=== PATIENT | female | born 1995 | race Two or more races ===

== ENCOUNTER 2020-02-23 20:04 | Emergency (ER) | END 2020-02-23 22:20 | disposition left against medical advice (07) | LOC: ER 20:04 | DX: Z53.21 Procedure and treatment not carried out due to patient leaving prior to being seen by health care provider (principal) ==

== ENCOUNTER 2020-03-28 05:15 | Day surgery (SDC) | payer OTHER ==
[2020-03-25 11:46] LABS: HEMATOCRIT 39.9 % (36.0-47.0); HEMOGLOBIN 13.5 g/dL (12.0-15.5); MEAN CORPUSCULAR HEMOGLOBIN 26.1 pg (27.0-33.4); MEAN CORPUSCULAR HGB CONC 33.7 g/dL (32.0-36.0); MEAN CORPUSCULAR VOLUME 77 fl (80-97); PLATELET COUNT 204 10^3/uL (150-450); RED BLOOD COUNT 5.16 10^6/uL (3.72-5.28); RED CELL DISTRIBUTION WIDTH 12.9 % (11.5-14.0); WHITE BLOOD COUNT 7.9 10^3/uL (4.0-10.5)
[2020-03-25 12:08] LABS: ANION GAP 7 (5-19); BLOOD UREA NITROGEN 12 mg/dL (7-20); CALCIUM 9.6 mg/dL (8.4-10.2); CARBON DIOXIDE 24 mmol/L (22-30); CHLORIDE 106 mmol/L (98-107); GLUCOSE 85 mg/dL (75-110); POTASSIUM 4.2 mmol/L (3.6-5.0)
[2020-03-25 15:25] LABS: APPEARANCE,URINE SLIGHTLY-CLOUDY; BILIRUBIN,URINE NEGATIVE (NEGATIVE); COLOR,URINE YELLOW; GLUCOSE, URINE NEGATIVE (NEGATIVE); KETONES,URINE NEGATIVE (NEGATIVE); LEUKOCYTE ESTERASE,URINE NEGATIVE (NEGATIVE); NITRITE,URINE NEGATIVE (NEGATIVE); PROTEIN,URINE NEGATIVE (NEGATIVE); URINE SPECIFIC GRAVITY 1.021; UROBILINOGEN,URINE NEGATIVE mg/dL (<2.0)
[~2020-03-28 05:15] MED LIST: LACTATED RINGERS 1000 ML IV PRN; LIDOCAINE 0.5% INJ-PF (5 MG/ML) 50 ML SDV SUBCUT PRN; SCOPOLAMINE HYDROBROMIDE 1.5 MG PATCH.TD72 ONE; SCOPOLAMINE HYDROBROMIDE 1.5 MG PATCH.TD72 TD PRN
[2020-03-28] MEDS ORDERED: CEFAZOLIN 1 GM/D5W RTU 1 GM/50 ML RTUPB IV ONE (05:27)
[2020-03-28] MEDS ORDERED: CEFAZOLIN 1 GM/D5W RTU 1 GM/50 ML RTUPB IV PRN (05:39)
[2020-03-28] MEDS ORDERED: MIDAZOLAM 2 MG/2 ML INJ ONE (06:55)
[2020-03-28] MEDS ORDERED: DEXAMETHASONE SOD PHOSPHATE INJ 4 MG/1 ML VIAL ONE (06:55)
[2020-03-28] MEDS ORDERED: FENTANYL CITRATE INJ/PF 100 MCG/2 ML AMPUL ONE (06:55)
[2020-03-28] MEDS ORDERED: ONDANSETRON HCL INJ/PF 4 MG/2 ML SDV ONE (06:55)
[2020-03-28] MEDS ORDERED: PROPOFOL INJ 200 MG/20 ML VIAL IV ONE (06:56)
[2020-03-28] MEDS ORDERED: MORPHINE SULFATE 10 MG/ML INJ ONE (06:56)
[2020-03-28] MEDS ORDERED: BUPIVACAINE HCL 0.25 % INJ/PF (2.5 MG/1 ML) 30 ML VIAL ONE (07:13)
[2020-03-28] MEDS ORDERED: SUGAMMADEX SODIUM 200 MG/2 ML SDV IV ONE (08:10)
[2020-03-28] MEDS ORDERED: DIPHENHYDRAMINE HCL 50 MG/ML VIAL IV PRN (08:14)
[2020-03-28] MEDS ORDERED: MEPERIDINE HCL/PF INJ 25 MG/1 ML DISP.SYRIN IV PRN (08:14)
[2020-03-28] MEDS ORDERED: MORPHINE SULFATE 10 MG/ML INJ IV PRN (08:14)
[2020-03-28] MEDS ORDERED: OXYCODONE-ACETAMINOPHEN 5-325 MG TABLET PO PRN ×2 (08:14)
[2020-03-28] MEDS ORDERED: FENTANYL CITRATE INJ/PF 100 MCG/2 ML AMPUL IV PRN ×3 (08:14)
[2020-03-28] MEDS ORDERED: PROMETHAZINE HCL INJ 25 MG/1 ML VIAL IV PRN ×2 (08:14)
--- NOTE | 2020-03-28 08:36 | Operative Report ---
Operative Report DATE OF SURGERY: 03/28/20 PREOPERATIVE DIAGNOSIS: Pelvic pain POSTOPERATIVE DIAGNOSIS: Cervical stenosis / Powder brush endometriosis OPERATION: Attempted D & C / Laparoscopy SURGEON: ENEDELIA RODRIGUEZ ANESTHESIA: GA TISSUE REMOVED OR ALTERED: None COMPLICATIONS: None ESTIMATED BLOOD LOSS: 25 cc INTRAOPERATIVE FINDINGS: Cervical stenosis / powder brush endometriosis PROCEDURE: Patient was brought into the operating room and placed on the table in a supine position. He was then inducted under general anesthesia. Patient was repositioned in a dorsolithotomy position. The bladder was drained of about 75 cc of clear yellow urine. Pelvic under anesthesia was then performed. Weighted vaginal speculum was inserted. Cervix grasped with a single-tooth tenaculum and Allis forceps on its anterior lip. We made several attempts to dilate the cervix using a small Hegar dilators however due to cervical stenosis we were unsuccessful. Attention was turned to the abdominal wall. Introduced subumbilically and carried through the various layers until the abdominal cavity was entered. We were connected CO2. Opening pressures were 5 cm of water. After 2 L of CO2 were infused the patient's pressure intra-abdominal he was 15 cm of water. Varies needle was removed and a small incision was made infraumbilically. Through this incision a trocar and sleeve were inserted. The trocar was removed and through the sleeve a laparoscope was inserted. Second incision was made suprapubically. Incision a trocar and sleeve were inserted. The trocar was removed and through the sleeve a probe was inserted. The contents of the abdomen and pelvis were then video recorded. Again it. To be any adhesions at this point in time. There were a few small areas of superficial endometriosis. That was about 20 cc of serosanguineous fluid in the cul-de-sac. This fluid was removed through a catheter. This terminated the intra-abdominal portion of our procedure. The suprapubic sleeve was removed and there was no evidence of active bleeding. 2 was allowed to escape. The subumb ilical sleeve was then removed. And had 4 cc of quarter percent Marcaine injected in the subumbilical incision. Patient had 3 cc of quarter percent Marcaine injected in the suprapubic incision. Fascia in the subumbilical incision and suprapubic incision was closed with interrupted using 2-0 Vicryl. Skin edges in the subumbilical incision were closed with a subcuticular using 4- 0 Prolene. Pubic incision skin edges were brought together and closed using a interrupted 4-0 Prolene. She was turned down to the patient's pelvis again. His speculum was inserted and the cervix was visualized once again. There was no evidence of active bleeding. Terminated the procedure. Anesthesia was discontinued and the patient was placed back in the supine position. She was transferred to the recovery room in satisfactory condition. Blood loss was 25 cc. Patient tolerated procedure well.
[2020-03-28] MEDS ORDERED: OXYCODONE-ACETAMINOPHEN 5-325 MG TABLET ONE (08:56)
[2020-03-28 13:18] VITALS: BP 105/74
[2020-03-28] MEDS ORDERED: ROCURONIUM BROMIDE INJ 50 MG/5 ML VIAL IV ONE (14:55)
== END 2020-03-28 11:00 | disposition home or self-care (01) ==
LOC: OROUT 05:15
PROVIDERS: ATTEND Obstetrics & Gynecology
DX: N88.2 Stricture and stenosis of cervix uteri (principal); N80.8 Other endometriosis; R10.2 Pelvic and perineal pain; N94.6 Dysmenorrhea, unspecified; Z03.818 Encounter for observation for suspected exposure to other biological agents ruled out
CPT/HCPCS: 49320; 58120; 36415; 87205; 87070; 85027; 87635; 81025; 87075; 80048; 81001; 88162; 00840; J2250; J0690; J3490 ×2; J1100; J3010; J2270; J2405; J2704; C9803; 840

== ENCOUNTER 2020-03-28 16:41 | Emergency (ER) | payer OTHER ==
[2020-03-28] MEDS ORDERED: ONDANSETRON HCL INJ/PF 4 MG/2 ML SDV IV ONE (16:55)
--- NOTE | 2020-03-28 16:57 | ER Document Report ---
ED Medical Screen (RME) - General Chief Complaint: Urinary Retention Stated Complaint: POST SURGICAL COMPLICATIONS/UNABLE TO PEE Time Seen by Provider: 03/28/20 16:49 Primary Care Provider: MAN GRANADOS PA-C [Primary Care Provider] - Follow up as needed Notes: Patient is a 24-year-old female who presents the emergency department with a chief complaint of urinary retention. Patient had an exploratory laparotomy and done today by Dr. Bella. Patient states that she had that done for endometriosis. States that she has the urge to urinate, but has not since prior to the surgery. Patient states that she has tenderness to her lower abdomen. States that she attempted drink a lot of fluids, but still has not voided. Patient reports vomiting 4 times. Exam: Surgical incision noted to navel. I have greeted and performed a rapid initial assessment of this patient. A comprehensive ED assessment and evaluation of the patient, analysis of test results and completion of medical decision making process will be conducted by an additional ED providers. - Related Data Allergies/Adverse Reactions: No Known Allergies Allergy (Verified 03/28/20 05:49) Home Medications: lexapro. control Past Medical History - Social History Frequency of alcohol use: None Drug Abuse: None - Past Medical History Cardiac Medical History: Denies: Hx Coronary Artery Disease, Hx Heart Attack, Hx Hypertension Pulmonary Medical History: Denies: Hx Asthma, Hx Bronchitis, Hx COPD, Hx Pneumonia Neurological Medical History: Denies: Hx Cerebrovascular Accident, Hx Seizures Musculoskeltal Medical History: Denies Hx Arthritis - Immunizations Hx Diphtheria, Pertussis, Tetanus Vaccination: Yes Physical Exam - Vital signs Vitals: Temp Pulse Resp BP Pulse Ox 98.9 F 65 14 111/66 98 03/28/20 16:52 03/28/20 16:52 03/28/20 16:52 03/28/20 16:52 03/28/20 16:52 Course - Vital Signs Vital signs: Temp Pulse Resp BP Pulse Ox 98.9 F 65 14 111/66 98 03/28/20 16:52 03/28/20 16:52 03/28/20 16:52 03/28/20 16:52 03/28/20 16:52 Doctor's Discharge - Discharge Referrals: MAN GRANADOS PA-C [Primary Care Provider] - Follow up as needed
[2020-03-28 17:48] LABS: ABSOLUTE LYMPHOCYTES (AUTO) 0.9 10^3/uL (0.5-4.7); ABSOLUTE MONOCYTES (AUTO) 0.2 10^3/uL (0.1-1.4); ABSOLUTE NEUT (AUTO) 8.2 10^3/uL (1.7-8.2); BASOPHILS % (AUTO) 0.3 % (0-2); HEMATOCRIT 40.4 % (36.0-47.0); HEMOGLOBIN 13.3 g/dL (12.0-15.5); LYMPHOCYTES % (AUTO) 9.8 % (13-45); MEAN CORPUSCULAR HEMOGLOBIN 25.9 pg (27.0-33.4); MEAN CORPUSCULAR HGB CONC 32.9 g/dL (32.0-36.0); MEAN CORPUSCULAR VOLUME 79 fl (80-97); PLATELET COUNT 219 10^3/uL (150-450); RED BLOOD COUNT 5.14 10^6/uL (3.72-5.28); RED CELL DISTRIBUTION WIDTH 12.8 % (11.5-14.0); SEGMENTED NEUTROPHILS % (AUTO) 87.9 % (42-78); TOTAL CELLS COUNTED % (AUTO) 100 %; WHITE BLOOD COUNT 9.3 10^3/uL (4.0-10.5)
[2020-03-28 18:05] LABS: ALBUMIN 4.3 g/dL (3.5-5.0); ALKALINE PHOSPHATASE 50 U/L (38-126); ANION GAP 8 (5-19); ASPARTATE AMINO TRANSFERASE 24 U/L (14-36); BILIRUBIN,TOTAL 0.6 mg/dL (0.2-1.3); BLOOD UREA NITROGEN 7 mg/dL (7-20); CALCIUM 9.8 mg/dL (8.4-10.2); CARBON DIOXIDE 22 mmol/L (22-30); CHLORIDE 100 mmol/L (98-107); GLUCOSE 116 mg/dL (75-110); POTASSIUM 4.4 mmol/L (3.6-5.0); TOTAL PROTEIN 7.9 g/dL (6.3-8.2)
--- NOTE | 2020-03-28 18:12 | ER Document Report ---
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 Has had some nausea vomiting at home tonight. Complains of soreness over the abdomen but no acute abdominal pain other than discomfort from not being able to urinate. No fever. ROS: See HPI - all other systems were reviewed and are otherwise negative Constitutional: no fever Eyes: no drainage, no blurred vision ENT: no runny nose, no sore throat Cardiovascular: no chest pain Resp: no SOB, no cough GI: + vomiting, no diarrhea, + abdominal pain : no dysuria Integumentary: no rash Allergy: no hives Musculoskeletal: no extremity pain or swelling Neurological: no numbness/tingling, no weakness MEDICATIONS: I agree with the patient medications as charted by the RN. ALLERGIES: I agree with the allergies as charted by the RN. PAST MEDICAL HISTORY/PAST SURGICAL HISTORY: Reviewed and agree as charted by RN. SOCIAL HISTORY: Reviewed and agree as charted by RN. FAMILY HISTORY: No significant familial comorbid conditions directly related to patient complaint EXAM: Reviewed vital signs as charted by RN. CONSTITUTIONAL: Alert and oriented and responds appropriately to questions. Well-appearing; well-nourished HEAD: Normocephalic; atraumatic EYES: PERRL; Conjunctivae clear, sclerae non-icteric ENT: normal nose; no rhinorrhea; moist mucous membranes; pharynx without lesions noted, no uvula edema or deviation, no tonsillar hypertrophy, phonation normal NECK: Supple without meningismus; non-tender; no cervical lymphadenopathy, no masses CARD: RRR; no murmurs, no clicks, no rubs, no gallops; symmetric distal pulses RESP: Normal chest excursion without splinting or tachypnea; breath sounds clear and equal bilaterally; no wheezes, no rhonchi, no rales, pulse oximetry 100% on room air not hypoxic ABD/GI: Normal bowel sounds; non-distended; soft, there is mild tenderness over the suprapubic region of the abdomen. Laparoscopic sites appear intact., no rebound, no guarding; no palpable organomegaly or masses. BACK: The back appears normal and is non-tender to palpation, there is no CVA tenderness EXT: Normal ROM in all joints; non-tender to palpation; no cyanosis, no effusions, no edema SKIN: Normal color for age and race; warm; dry; good turgor; no acute lesions noted NEURO: Moves all extremities equally; Motor and sensory function intact PSYCH: The patient's mood and manner are appropriate. Grooming and personal hygiene are appropriate. MDM: 24-year-old female with urinary retention postsurgically. As I arrived to the room to evaluate the patient she was able to urinate a large amount. Bladder scan by nursing post void does not show significant residual. She received Zofran here for her nausea and states it is improved. Will make sure she has a prescription for nausea and will discharge home to follow-up with her surgeon with return instructions - Related Data Allergies/Adverse Reactions: No Known Allergies Allergy (Verified 03/28/20 05:49) Home Medications: lexapro. control Past Medical History - Social History Smoking Status: Never Smoker Frequency of alcohol use: None Drug Abuse: None Family History: Reviewed & Not Pertinent - Past Medical History Cardiac Medical History: Denies: Hx Coronary Artery Disease, Hx Heart Attack, Hx Hypertension Pulmonary Medical History: Denies: Hx Asthma, Hx Bronchitis, Hx COPD, Hx Pneumonia Neurological Medical History: Denies: Hx Cerebrovascular Accident, Hx Seizures Musculoskeletal Medical History: Denies Hx Arthritis - Immunizations Hx Diphtheria, Pertussis, Tetanus Vaccination: Yes Physical Exam - Vital signs Vitals: Temp Pulse Resp BP Pulse Ox 98.9 F 65 14 111/66 98 03/28/20 16:52 03/28/20 16:52 03/28/20 16:52 03/28/20 16:52 03/28/20 16:52 Course - Vital Signs Vital signs: Temp Pulse Resp BP Pulse Ox 98.9 F 65 14 111/66 98 03/28/20 16:52 03/28/20 16:52 03/28/20 16:52 03/28/20 16:52 03/28/20 16:52 - Laboratory Result Diagrams: 03/28/20 17:31 03/28/20 17:31 Laboratory results interpreted by me: 03/28/20 17:31 MCV 79 L MCH 25.9 L Lymph % (Auto) 9.8 L [place] % (Auto) 2.0 L Seg Neutrophils % 87.9 H Discharge - Discharge Clinical Impression: Urine retention Condition: Stable Disposition: HOME, SELF-CARE Instructions: Urinary Retention ([facility]) Additional Instructions: Continue to push fluids at home. Take Zofran for any nausea vomiting issues. Return if you are unable to void in another 8 hours or have significant abdominal discomfort. Follow-up with your RIG OPERATOR for further evaluation and treatment call for appointment or speak with the on-call providers for further direction Prescriptions: Ondansetron [Zofran Odt 4 mg Tablet] 1 - 2 tab PO Q4H PRN #15 tab.rapdis PRN Reason: For Nausea/Vomiting Referrals: MAN GRANADOS PA-C [Primary Care Provider] - Follow up as needed
[2020-03-28 18:36] VITALS: BP 104/57
== END 2020-03-28 18:38 | disposition home or self-care (01) ==
LOC: ER 16:41
DX: R33.9 Retention of urine, unspecified (principal); R11.10 Vomiting, unspecified; R10.9 Unspecified abdominal pain; Z79.3 Long term (current) use of hormonal contraceptives
CPT/HCPCS: 99283; 96374; 36415; 85025; 80053; J2405

== ENCOUNTER → 2020-04-30 | Outpatient (CLI) | payer OTHER ==
--- NOTE | 2020-04-30 15:32 | RADIOLOGY REPORT (SQ) ---
EXAM DESCRIPTION: NM HIDA SCAN WITH CCK IMAGES COMPLETED DATE/TIME: 04/30/2020 3:07 pm REASON FOR STUDY: R10.11 RIGHT UPPER QUADRANT PAIN R10.11 RIGHT UPPER QUADRANT PAIN COMPARISON: None. RADIONUCLIDE AND DOSE: DOSAGE RADIONUCLIDE: 5 millicuries Tc99m Mebrofenin. DOSAGE CCK: 1.1 micrograms. DOSAGE MORPHINE: Not required. The route of agent administration: Intravenous TECHNIQUE: Serial imaging right upper quadrant up to 60 minutes following injection of radionuclide. CCK injected after gallbladder visualized. LIMITATIONS: None. FINDINGS: LIVER: Normal visualization without areas of photopenia. INTRAHEPATIC BILE DUCTS: Normal size and no delay in visualization. COMMON BILE DUCT: Normal without dilatation. GALLBLADDER: Normal visualization. Calculated ejection fraction of 38%. Normal range is greater th an 35%. PHYSICAL RESPONSE: Patients presenting complaint what is reproduced. OTHER: None. IMPRESSION: Normal gallbladder ejection fraction of 38%. Patient's symptoms were reproduced with CC K administration. TECHNICAL DOCUMENTATION: JOB ID: [id number] 2010 [employer]- All Rights Reserved Reading location - IP/workstation name: [email or web address]
== END ==
LOC: RAD 04-29 10:44
PROVIDERS: ATTEND Obstetrics & Gynecology
DX: R10.11 Right upper quadrant pain (principal)
CPT/HCPCS: 78227; J2805; A9537; Q9969

== ENCOUNTER 2020-05-27 07:26 | Day surgery (SDC) | payer OTHER ==
[2020-05-27] MEDS ORDERED: PROPOFOL INJ 200 MG/20 ML VIAL IV ONE (07:35)
--- NOTE | 2020-05-27 08:54 | Operative Report ---
Operative Report DATE OF SURGERY: 05/27/20 Operative Report: The risks benefits and alternatives of the procedure explained to the patient in detail and informed consent is obtained.A GIF Olympus video scope was inserted into the patient's mouth and hypopharynx, the esophagus is identified intubated and insufflated, the scope was then advanced through the esophagus stomach and duodenum, retroflexion maneuver is done ,the esophagus stomach and first and second portions of the duodenum examined PREOPERATIVE DIAGNOSIS: Epigastric pain rule out peptic ulcer disease POSTOPERATIVE DIAGNOSIS: Gastritis status post biopsy rule out H. pylori. Small hiatal hernia OPERATION: EGD with biopsy SURGEON: YUSRA NAVA ANESTHESIA: LMAC TISSUE REMOVED OR ALTERED: As noted above. COMPLICATIONS: None. ESTIMATED BLOOD LOSS: None. INTRAOPERATIVE FINDINGS: As noted above. PROCEDURE: Patient tolerated the procedure well. No immediate postprocedure complications are noted. Patient is discharged in good condition. Discharge date 05/27/2020. Discharge diet: Regular. Discharge activity: Regular. 2 to 3-week follow-up to discuss findings. Patient is instructed to call the office or proceed to the emergency room should there be any further problems or questions. Wait on the pathology.
[2020-05-27 09:39] VITALS: BP 105/76
== END 2020-05-27 10:04 | disposition home or self-care (01) ==
LOC: END 07:26
PROVIDERS: ATTEND Internal Medicine Gastroenterology
DX: K44.9 Diaphragmatic hernia without obstruction or gangrene (principal); K29.50 Unspecified chronic gastritis without bleeding
CPT/HCPCS: 43239; 88342 ×2; 88305 ×2; 00731; J2704; 731

== ENCOUNTER → 2020-09-19 | Outpatient (CLI) | payer OTHER ==
--- NOTE | 2020-09-19 11:05 | RADIOLOGY REPORT (SQ) ---
EXAM DESCRIPTION: CHEST 2 VIEWS IMAGES COMPLETED DATE/TIME: 09/19/2020 10:58 am REASON FOR STUDY: COUGH/HX OF COVID COMPARISON: None. EXAM PARAMETERS: NUMBER OF VIEWS: Two views. TECHNIQUE: PA and lateral views of the chest were obtained. RADIATION DOSE: NA LIMITATIONS: None. FINDINGS: LUNGS AND PLEURA: No consolidation, pleural effusion or pneumothorax. MEDIASTINUM AND HILAR STRUCTURES: No mediastinal or hilar contour abnormality. HEART AND VASCULAR STRUCTURES: The cardiac silhouette and pulmonary vasculature are within normal packer its. BONES: No acute findings. HARDWARE: None in the chest. OTHER: No other finding. IMPRESSION: No acute cardiopulmonary process. TECHNICAL DOCUMENTATION: JOB ID: [id number] 2010 [employer]- All Rights Reserved Reading location - IP/workstation name: [email or web address]
== END ==
LOC: RAD 10:41
PROVIDERS: ATTEND Nurse Practitioner Family
DX: R05 Cough (principal); Z86.16 Personal history of COVID-19
CPT/HCPCS: 71046